=== PATIENT | male | born 1965 | race Caucasian/White ===

== ENCOUNTER 2017-10-30 07:55 | Day surgery (SDC) | payer BC ==
[2017-10-27 12:07] VITALS: BMI 23.0
[2017-10-30] MEDS ORDERED: PROPOFOL 20 ML ONE ×2 (08:06)
[2017-10-30 10:07] VITALS: TEMP 95
[2017-10-30 10:50] VITALS: BP 118/83; PULSE 72
== END 2017-10-30 10:40 | disposition home or self-care (01) ==
LOC: FASU-ENDO 07:55
PROVIDERS: ATTEND Internal Medicine Gastroenterology
PROC: 0DJD8ZZ Inspection of Lower Intestinal Tract, Via Natural or Artificial Opening Endoscopic (ICD-10-PCS; principal; 2017-10-30 09:33)
DX: Z12.11 Encounter for screening for malignant neoplasm of colon (principal); K57.30 Diverticulosis of large intestine without perforation or abscess without bleeding